=== PATIENT | male | born 1965 ===

== ENCOUNTER 2022-08-28 20:56 | Emergency (ER) | payer BC ==
[2022-08-28] MEDS ORDERED: Ketorolac 60 MG/2 ML SDV IM ONE (22:00)
[2022-08-28] MEDS ORDERED: HYDROmorphone 1 MG/ML Syringe IM ONE (22:00)
[2022-08-28 23:21] VITALS: BP 140/80; PULSE 89
== END 2022-08-28 23:20 | disposition home or self-care (01) ==
LOC: JD.ED 20:56
DX: S52.022A Displaced fracture of olecranon process without intraarticular extension of left ulna, initial encounter for closed fracture (principal); I10 Essential (primary) hypertension; Z79.899 Other long term (current) drug therapy; Z72.0 Tobacco use; W01.0XXA Fall on same level from slipping, tripping and stumbling without subsequent striking against object, initial encounter
CPT/HCPCS: 29105; 73080; 96372; 99283; J1170; J1885